=== PATIENT | male | born 1975 | race Caucasian/White ===

== ENCOUNTER 2018-11-12 16:16 | Emergency (ER) | payer SELFPAY ==
[2018-11-12 16:53] LABS: Absolute Lymphocytes (CBC) 1.3 K/uL (0.7-4.9); Absolute Monocytes 0.3 K/uL (0.1-1.3); Absolute Neutrophil 10.2 K/uL (1.8-8.0); Basophils % 0.4 % (0-1.3); Eosinophils % 0.1 % (0-4.4); Hematocrit 51.7 % (39.6-49.0); Lymphocytes % 10.8 % (15.3-44.8); MPV 8.4 fL (7.6-11.3); Monocytes % 2.6 % (3.3-12.3)
[2018-11-12] MEDS ORDERED: NA CHLORIDE 0.9% 1,000 ML ONE (17:06)
[2018-11-12] MEDS ORDERED: ONDANSETRON 4 MG/2 ML VIAL ONE (17:06)
[2018-11-12 17:11] LABS: Albumin 4.4 g/dL (3.4-5.0); Bilirubin Direct 0.2 mg/dL (0-0.2); Bilirubin Total 0.5 mg/dL (0.2-1.0); Potassium 4.3 mmol/L (3.5-5.1); Protein, Total 8.4 g/dL (6.4-8.2)
--- NOTE | 2018-11-12 17:36 | RAD REPORT ---
EXAM DESCRIPTION: Cecilia Covington (2 Views)11/12/2018 5:04 pm CLINICAL HISTORY: Cough COMPARISON: 2014 FINDINGS: The lungs appear clear of acute infiltrate. The heart is normal size IMPRESSION: No acute abnormalities displayed
[2018-11-12 17:46] LABS: Blood Morphology Comment NOT SEEN (NOT SEEN); Platelet Estimate ADEQ; Urine White Blood Cell Casts OK
--- NOTE | 2018-11-12 18:44 | ER ---
Nurse's Notes [facility] Name: Gaetano Lubin II Age: 43 yrs Sex: Male : 1975 Arrival Date: 11/12/2018 Time: 16:19 Bed 20 Private MD: Diagnosis: Vomiting;Diarrhea, unspecified;Bronchitis, not specified as acute or chronic Presentation: 11/12 16:21 Presenting complaint: Patient states: VOMITING, MYALGIA AND SOB. Transition of care: bp patient was not received from another setting of care. Onset of symptoms was November 12, 2018 at 08:00. Risk Assessment: Do you want to hurt yourself or someone else? Patient reports no desire to harm self or others. Initial Sepsis Screen: Does the patient meet any 2 criteria? No. Patient's initial sepsis screen is negative. Does the patient have a suspected source of infection? No. Patient's initial sepsis screen is negative. Care prior to arrival: None. 16:21 Method Of Arrival: Ambulatory bp 16:21 Acuity: NAM 3 bp Historical: - Allergies: 16:22 No Known Allergies; bp - Home Meds: 16:22 None [Active]; bp - PMHx: 16:22 None; bp - PSHx: 16:22 None; bp - Immunization history:: Adult Immunizations up to date. - Social history:: Smoking status: Patient uses tobacco products, denies chronic smoking, but will smoke occasionally. - Ebola Screening: : No symptoms or risks identified at this time. Screenin:40 Abuse screen: Denies threats or abuse. Nutritional screening: No deficits noted. em Tuberculosis screening: No symptoms or risk factors identified. Fall Risk None identified. Assessment: 16:45 General: Appears in no apparent distress. comfortable, Behavior is calm, cooperative, em Reports chills for 0-12 hours, feeling ill for 1-2 days. Pain: Denies pain. Neuro: Level of Consciousness is awake, alert, obeys commands, Oriented to person, place, time, situation, Reports dizziness. Cardiovascular: Capillary refill < 3 seconds Patient's skin is warm and dry. Rhythm is regular. Respiratory: Reports shortness of breath cough that is productive, pain with cough since this morning Airway is patent Respiratory effort is even, unlabored, Respiratory pattern is regular, symmetrical, Breath sounds are clear bilaterally. GI: Abdomen is flat, Reports diarrhea, nausea, vomiting. Derm: Skin is intact, is healthy with good turgor, Skin is pink, warm \T\ dry. Musculoskeletal: Capillary refill < 3 seconds, Range of motion: intact in all extremities. 16:50 General: The previous assessment is accurate, call light remains within reach. ss 18:00 Reassessment: Patient appears in no apparent distress at this time. Patient and/or em family updated on plan of care and expected duration. Pain level reassessed. Patient is alert, oriented x 3, equal unlabored respirations, skin warm/dry/pink. 19:02 Reassessment: Patient appears in no apparent distress at this time. Patient and/or em family updated on plan of care and expected duration. Pain level reassessed. Patient is alert, oriented x 3, equal unlabored respirations, skin warm/dry/pink. pending completion of medications ordered Patient states feeling better. Patient states symptoms have improved. Vital Signs: 16:22 BP 141 / 97; Pulse 68; Resp 16; Temp 98; Pulse Ox 99% ; Weight 117.93 kg; Height 6 ft. bp 4 in. (193.04 cm); 18:25 BP 114 / 84; Pulse 70; Resp 18; Temp 99.0(O); Pulse Ox 97% ; mh5 16:22 Body Mass Index 31.65 (117.93 kg, 193.04 cm) bp ED Course: 16:19 Patient arrived in ED. tw3 16:22 Higinio Solis NP is PHCP. pm1 16:22 Deshaun Reynoso MD is Attending Physician. pm1 16:22 Triage completed. bp 16:22 Arm band placed on. bp 16:36 Jonathan Yoon LVN is Primary Nurse. em 16:45 Patient has correct armband on for positive identification. Bed in low position. Call [facility] light in reach. Side rails up X 1. Adult w/ patient. Warm blanket given. Pulse ox on. NIBP on. 16:45 Flu Sent. mh5 16:45 Flu and/or RSV swab sent to lab. 5 16:50 Initial lab(s) drawn, by in, sent to lab. Inserted saline lock: 20 gauge in left em antecubital area, using aseptic technique. Blood collected. 17:02 Chest Pa And Lat (2 Views) XRAY In Process Unspecified. EDMS 19:01 No provider procedures requiring assistance completed. em 19:23 IV discontinued, intact, bleeding controlled, No redness/swelling at site. Pressure em dressing applied. Administered Medications: 16:50 Drug: NS 0.9% 1000 ml Route: IV; Rate: 1000 ml; Site: left antecubital; em 19:22 Follow up: IV Status: Completed infusion; IV Intake: 1000ml em 16:55 Drug: Zofran 4 mg Route: IVP; Site: left antecubital; ss 18:32 Follow up: Response: No adverse reaction; Nausea is decreased em 18:50 Drug: Bentyl 20 mg Route: PO; ss 19:03 Follow up: Response: No adverse reaction em 18:50 Drug: Rocephin 1 grams Route: IV; Rate: calculated rate; Site: right antecubital; ss 19:03 Follow up: Response: No adverse reaction; IV Status: Completed infusion; IV Intake: 10mlem 18:50 Drug: Albuterol 2.5 mg Route: Inhalation; ss 19:22 Follow up: Response: No adverse reaction em 18:51 Drug: AtroVENT Aerosol 0.5 mg Route: Inhalation; ss 19:22 Follow up: Response: No adverse reaction em 18:51 Drug: predniSONE 60 mg Route: PO; ss 19:03 Follow up: Response: No adverse reaction em Intake: 19:03 IV: 10ml; Total: 10ml. em 19:22 IV: 1000ml; Total: 1010ml. em Outcome: 18:44 Discharge ordered by MD. pm1 19:23 Discharged to home ambulatory, with family. em 19:23 Condition: good 19:23 Discharge instructions given to patient, family, Instructed on discharge instructions, follow up and referral plans. medication usage, Demonstrated understanding of instructions, follow-up care, medications, Prescriptions given X 2. 19:23 Patient left the ED. em Signatures: Dispatcher [employer] EDCT Jonathan Yoon, SECOND CHEF SECOND CHEF em Noni Caraballo RN RN ss Higinio Solis, UNIT COORDINATOR UNIT COORDINATOR pm1 Clare Dickens mh5 Juan, Tia tw3 Beck Hathaway RN RN bp Corrections: (The following items were deleted from the chart) 16:57 16:50 Zofran 4 mg IVP in left antecubital em ss
--- NOTE | 2018-11-12 18:44 | EDPHYS ---
Physician Documentation [facility] Name: Gaetano Lubin II Age: 43 yrs Sex: Male : 1975 Arrival Date: 11/12/2018 Time: 16:19 Bed 20 Private MD: ED Physician Deshaun Reynoso HPI: 11/12 17:02 This 43 yrs old Male presents to ER via Ambulatory with complaints of pm1 Breathing Difficulty, Vomiting. 17:02 The patient has shortness of breath at rest. Onset: The symptoms/episode began/occurred pm1 2 day(s) ago. Duration: The symptoms are continuous. The patient's shortness of breath is aggravated by nothing, is alleviated by nothing. Associated signs and symptoms: Pertinent positives: vomiting, diarrhea, and abdominal cramping. Severity of symptoms: in the emergency department the symptoms are unchanged Pain is currently a 0 / 10. The patient has not experienced similar symptoms in the past. The patient has not recently seen a physician. Historical: - Allergies: 16:22 No Known Allergies; bp - Home Meds: 16:22 None [Active]; bp - PMHx: 16:22 None; bp - PSHx: 16:22 None; bp - Immunization history:: Adult Immunizations up to date. - Social history:: Smoking status: Patient uses tobacco products, denies chronic smoking, but will smoke occasionally. - Ebola Screening: : No symptoms or risks identified at this time. ROS: 17:02 Constitutional: Negative for fever, chills, and weight loss, Eyes: Negative for injury, pm1 pain, redness, and discharge, ENT: Negative for injury, pain, and discharge, Neck: Negative for injury, pain, and swelling, Cardiovascular: Negative for chest pain, palpitations, and edema. 17:02 Back: Negative for injury and pain, : Negative for injury, bleeding, discharge, and swelling, MS/Extremity: Negative for injury and deformity, Skin: Negative for injury, rash, and discoloration, Neuro: Negative for headache, weakness, numbness, tingling, and seizure. 17:02 Respiratory: Positive for cough, shortness of breath. 17:02 Abdomen/GI: Positive for abdominal pain, nausea, vomiting, and diarrhea, Negative for constipation. Exam: 17:02 Constitutional: This is a well developed, well nourished patient who is awake, alert, pm1 and in no acute distress. Head/Face: Normocephalic, atraumatic. Eyes: Pupils equal round and reactive to light, extra-ocular motions intact. Lids and lashes normal. Conjunctiva and sclera are non-icteric and not injected. Cornea within normal limits. Periorbital areas with no swelling, redness, or edema. ENT: Nares patent. No nasal discharge, no septal abnormalities noted. Tympanic membranes are normal and external auditory canals are clear. Oropharynx with no redness, swelling, or masses, exudates, or evidence of obstruction, uvula midline. Mucous membranes moist. Neck: Trachea midline, no thyromegaly or masses palpated, and no cervical lymphadenopathy. Supple, full range of motion without nuchal rigidity, or vertebral point tenderness. No Meningismus. Chest/axilla: Normal chest wall appearance and motion. Nontender with no deformity. No lesions are appreciated. Cardiovascular: Regular rate and rhythm with a normal S1 and S2. No gallops, murmurs, or rubs. Normal PMI, no JVD. No pulse deficits. Respiratory: Lungs have equal breath sounds bilaterally, clear to auscultation and percussion. No rales, rhonchi or wheezes noted. No increased work of breathing, no retractions or nasal flaring. Abdomen/GI: Soft, non-tender, with normal bowel sounds. No distension or tympany. No guarding or rebound. No evidence of tenderness throughout. Back: No spinal tenderness. No costovertebral tenderness. Full range of motion. Skin: Warm, dry with normal turgor. Normal color with no rashes, no lesions, and no evidence of cellulitis. MS/ Extremity: Pulses equal, no cyanosis. Neurovascular intact. Full, normal range of motion. 17:02 Neuro: Orientation: is normal, Motor: is normal, moves all fours, Sensation: is normal, no obvious gross deficits. Vital Signs: 16:22 BP 141 / 97; Pulse 68; Resp 16; Temp 98; Pulse Ox 99% ; Weight 117.93 kg; Height 6 ft. bp 4 in. (193.04 cm); 18:25 BP 114 / 84; Pulse 70; Resp 18; Temp 99.0(O); Pulse Ox 97% ; mh5 16:22 Body Mass Index 31.65 (117.93 kg, 193.04 cm) bp MDM: 16:26 Patient medically screened. pm1 18:16 Data reviewed: vital signs. Data interpreted: Pulse oximetry: on room air is 99 %. pm1 Interpretation: normal. 18:43 Counseling: I had a detailed discussion with the patient and/or guardian regarding: the pm1 historical points, exam findings, and any diagnostic results supporting the discharge/admit diagnosis, lab results, radiology results, the need for outpatient follow up, to return to the emergency department if symptoms worsen or persist or if there are any questions or concerns that arise at home. 11/12 16:32 Order name: Flu; Complete Time: 17:21 pm1 11/12 16:36 Order name: Basic Metabolic Panel; Complete Time: 17:21 pm1 11/12 16:36 Order name: CBC with Diff; Complete Time: 17:52 pm1 11/12 16:36 Order name: Creatinine for Radiology; Complete Time: 17:21 pm1 11/12 16:36 Order name: Hepatic Function; Complete Time: 17:21 pm1 11/12 16:36 Order name: Lipase; Complete Time: 17:21 pm1 11/12 16:36 Order name: Chest Pa And Lat (2 Views) XRAY; Complete Time: 17:38 pm1 11/12 17:47 Order name: CBC Smear Scan; Complete Time: 17:52 EDMS 11/12 16:36 Order name: IV Saline Lock; Complete Time: 16:55 pm1 11/12 16:36 Order name: Labs collected and sent; Complete Time: 16:55 pm1 Administered Medications: 16:50 Drug: NS 0.9% 1000 ml Route: IV; Rate: 1000 ml; Site: left antecubital; em 19:22 Follow up: IV Status: Completed infusion; IV Intake: 1000ml em 16:55 Drug: Zofran 4 mg Route: IVP; Site: left antecubital; ss 18:32 Follow up: Response: No adverse reaction; Nausea is decreased em 18:50 Drug: Bentyl 20 mg Route: PO; ss 19:03 Follow up: Response: No adverse reaction em 18:50 Drug: Rocephin 1 grams Route: IV; Rate: calculated rate; Site: right antecubital; ss 19:03 Follow up: Response: No adverse reaction; IV Status: Completed infusion; IV Intake: 10mlem 18:50 Drug: Albuterol 2.5 mg Route: Inhalation; 19:22 Follow up: Response: No adverse reaction em 18:51 Drug: AtroVENT Aerosol 0.5 mg Route: Inhalation; ss 19:22 Follow up: Response: No adverse reaction em 18:51 Drug: predniSONE 60 mg Route: PO; ss 19:03 Follow up: Response: No adverse reaction em Disposition: 11/13 07:53 Co-signature as Attending Physician, Deshaun Reynoso MD I agree with the assessment and kayleen plan of care. Disposition: 11/12/18 18:44 Discharged to Home. Impression: Vomiting, Diarrhea, unspecified, Bronchitis, not specified as acute or chronic. - Condition is Stable. - Discharge Instructions: Acute Bronchitis, Adult, Food Choices to Help Relieve Diarrhea, Adult, How to Use an Inhaler, Steps to Quit Smoking, Viral Gastroenteritis, Adult, Cough, Adult. - Prescriptions for Zofran 4 mg Oral Tablet - take 1 tablet by ORAL route every 12 hours As needed; 20 tablet. Medrol (Bj) 4 mg Oral Tablets, Dose Pack - take 1 tablet by ORAL route as directed - follow package instructions; 1 packet. Albuterol Sulfate 90 mcg/actuation - inhale 1-2 puff by INHALATION route every 4-6 hours; 1 Inhaler. Guaifenesin AC 10- 100 mg/5 mL Oral Liquid - take 10 milliliter by ORAL route every 4 hours As needed; 240 milliliter. - Medication Reconciliation Form, Thank You Letter, Antibiotic Education, Prescription Opioid Use form. - Follow up: Emergency Department; When: As needed; Reason: Worsening of condition. Follow up: Private Physician; When: 2 - 3 days; Reason: Recheck today's complaints, Continuance of care, Re-evaluation by your physician. - Problem is new. - Symptoms have improved. Signatures: Dispatcher [employer] Deshaun Angel MD MD cha Munoz, Edgar, ACQUISITION ASSOCIATE ACQUISITION ASSOCIATE Noni Claudio, RN RN ss Higinio Solis, LIVE OUT NANNY LIVE OUT NANNY pm1 Beck Hathaway, RN RN bp Corrections: (The following items were deleted from the chart) 11/12 19:23 18:44 11/12/2018 18:44 Discharged to Home. Impression: Vomiting; Diarrhea, unspecified; em Bronchitis, not specified as acute or chronic. Condition is Stable. Forms are Medication Reconciliation Form, Thank You Letter, Antibiotic Education, Prescription Opioid Use. Follow up: Emergency Department; When: As needed; Reason: Worsening of condition. Follow up: Private Physician; When: 2 - 3 days; Reason: Recheck today's complaints, Continuance of care, Re-evaluation by your physician. Problem is new. Symptoms have improved. pm1
[2018-11-12] MEDS ORDERED: IPRATROPIUM BROM 0.5MG/2.5ML ONE (18:57)
[2018-11-12] MEDS ORDERED: ALBUTEROL 2.5 MG/3 ML NEB SOL ONE (18:57)
[2018-11-12] MEDS ORDERED: CEFTRIAXONE/SWI 1gm 1 GM/10 ML SYR ONE (18:58)
[2018-11-12] MEDS ORDERED: DICYCLOMINE HCL 10 MG CAP ONE (18:58)
[2018-11-12] MEDS ORDERED: predniSONE 20 MG TAB ONE (18:58)
== END 2018-11-12 19:23 | disposition home or self-care (01) ==
LOC: ER 16:16
DX: J40 Bronchitis, not specified as acute or chronic (principal); R11.10 Vomiting, unspecified; R19.7 Diarrhea, unspecified; Z72.0 Tobacco use
CPT/HCPCS: 36415; 71046; 80048; 80076; 83690; 85025; 87804; 99284; J0696; J2405; J7030; J7512